=== PATIENT | male | born 1980 | race Caucasian/White ===

== ENCOUNTER 2025-01-01 07:34 | Day surgery (SDC) | payer OTHER ==
[2024-12-22 13:50] VITALS: BMI 21.2
[2025-01-01 11:01] VITALS: TEMP 97.9
[2025-01-01 11:40] VITALS: RESP 18
[2025-01-01 11:56] VITALS: BP 101/71; PULSE 63
== END 2025-01-01 11:56 | disposition home or self-care (01) ==
LOC: JASU-ENDO 07:34
PROVIDERS: ATTEND Internal Medicine Gastroenterology
PROC: 0DJD8ZZ Inspection of Lower Intestinal Tract, Via Natural or Artificial Opening Endoscopic (ICD-10-PCS; principal; 2025-01-01 10:00)
DX: K64.8 Other hemorrhoids (principal); Z15.09 Genetic susceptibility to other malignant neoplasm

== ENCOUNTER 2025-01-08 07:30 | Day surgery (SDC) | payer OTHER ==
[2024-12-26 11:57] VITALS: BMI 21.2
[2025-01-08 11:06] VITALS: TEMP 98
[2025-01-08 11:37] VITALS: BP 104/75; PULSE 62; RESP 15
== END 2025-01-08 11:55 | disposition home or self-care (01) ==
LOC: JASU-ENDO 07:30
PROVIDERS: ATTEND Internal Medicine Gastroenterology
PROC: 0DB78ZX Excision of Stomach, Pylorus, Via Natural or Artificial Opening Endoscopic, Diagnostic (ICD-10-PCS; 2025-01-08)
PROC: 0DB68ZX Excision of Stomach, Via Natural or Artificial Opening Endoscopic, Diagnostic (ICD-10-PCS; 2025-01-08)
PROC: 0DB38ZX Excision of Lower Esophagus, Via Natural or Artificial Opening Endoscopic, Diagnostic (ICD-10-PCS; 2025-01-08)
PROC: 0DB98ZX Excision of Duodenum, Via Natural or Artificial Opening Endoscopic, Diagnostic (ICD-10-PCS; principal; 2025-01-08 10:30)
DX: K21.00 Gastro-esophageal reflux disease with esophagitis, without bleeding (principal); K29.50 Unspecified chronic gastritis without bleeding; Z87.19 Personal history of other diseases of the digestive system
CPT/HCPCS: 88305-TC; 88342-TC